=== PATIENT | male | born 2005 | race Caucasian/White ===

== ENCOUNTER 2024-04-08 10:33 | Emergency (ER) | payer OTHER ==
[~2024-04-08] VITALS: Ht 180.3 cm; Wt 61.9 kg
[2024-04-08 10:40] VITALS: BP 126/75; PULSE 62; RESP 18; TEMP 98.1; O2SAT 99
[2024-04-08] MEDS ORDERED: AMOX500C25 PO (12:10)
[2024-04-08] MEDS ORDERED: IBUP-2213 PO (12:10)
== END 2024-04-08 12:20 | disposition home or self-care (01) ==
LOC: MED 10:33
DX: J02.0 Streptococcal pharyngitis (principal); Z79.1 Long term (current) use of non-steroidal anti-inflammatories (NSAID); Z79.2 Long term (current) use of antibiotics
CPT/HCPCS: 87081; 99283